=== PATIENT | female | born 1985 | race Caucasian/White ===

== ENCOUNTER 2017-03-02 16:41 | Emergency (ER) | payer OTHER ==
[2017-03-02 17:09] VITALS: BMI 20.5
[2017-03-02 17:12] VITALS: BP 108/76; PULSE 92; RESP 16; TEMP 98.9; O2SAT 99
--- NOTE | 2017-03-02 17:23 | ED PDOC ---
Arrival/HPI - General Chief Complaint: Cough, Cold, Congestion Time Seen by Provider: 03/02/17 17:19 Historian: Patient, Parent - History of Present Illness Narrative History of Present Illness (Text): 03/02/17 17:20 31 y/o female, no pmh, nkda, c/o coughing with runny nose x 4 days. Productive coughing with yellow green phelgm, associated with the runny nose, no fever or chills, no night sweat, no neck stiffness, no bodyache, no recent traveling, no rash, no diarrhea or abdominal pain, no headache, no other medical or psychological complaints. Past Medical History - Provider Review Nursing Documentation Reviewed: Yes - Infectious Disease Hx of Infectious Diseases: None - Renal Hx Renal Disorder: No Hx Kidney Stones: No - Hematological/Oncological Hx Blood Disorders: No - Psychiatric Hx Psychophysiologic Disorder: No Hx Substance Use: No - Anesthesia Hx Anesthesia: No Family/Social History - Physician Review Nursing Documentation Reviewed: Yes Family/Social History: Unknown Family HX Smoking Status: Never Smoked Hx Alcohol Use: No Hx Substance Use: No Allergies/Home Meds Allergies/Adverse Reactions: Allergies No Known Allergies Allergy (Verified 03/02/17 17:09) Review of Systems - Review of Systems Constitutional: absent: Fatigue, Fevers Eyes: absent: Vision Changes ENT: Rhinorrhea. absent: Hearing Changes Respiratory: Cough. absent: SOB, Sputum, Wheezing Cardiovascular: absent: Chest Pain Gastrointestinal: absent: Abdominal Pain, Nausea, Vomiting Musculoskeletal: absent: Arthralgias, Back Pain Skin: absent: Rash, Pruritis, Skin Lesions Physical Exam Vital Signs Reviewed: Yes ( ) Vital Signs Temp Pulse Resp BP Pulse Ox 03/02/17 17:09 98.9 F 92 H 16 108/76 99 Temperature: Afebrile Blood Pressure: Normal Pulse: Regular Respiratory Rate: Normal Appearance: Positive for: Well-Appearing, Non-Toxic, Comfortable Pain Distress: None Mental Status: Positive for: Alert and Oriented X 3 - Systems Exam Head: Present: Atraumatic, Normocephalic Pupils: Present: PERRL Extroacular Muscles: Present: EOMI Conjunctiva: Present: Normal Ears: Present: NORMAL TM, Normal Canal. No: Erythema Mouth: Present: Moist Mucous Membranes Pharnyx: No: ERYTHEMA, EXUDATE, TONSILS ENLARGED, Uvular Deviation, Soft Palate/ Uvular Edema Nose (External): Present: Atraumatic. No: Abrasion, Contusion, Laceration Nose (Internal): Present: Normal Inspection, No Active Bleeding, Rhinorrhea. No : Septal Deviation, Septal Hematoma, Epistaxis Neck: Present: Normal Range of Motion Respiratory/Chest: Present: Clear to Auscultation, Good Air Exchange. No: Respiratory Distress, Accessory Muscle Use, Wheezes, Decreased Breath Sounds, Rales, Retracting, Rhonchi, Tachypneic, Tender to Palpation Cardiovascular: Present: Regular Rate and Rhythm, Normal S1, S2, Other (no pedal edema). No: Murmurs Abdomen: Present: Normal Bowel Sounds. No: Tenderness, Distention, Peritoneal Signs Back: Present: Normal Inspection Upper Extremity: Present: Normal Inspection. No: Cyanosis, Edema Lower Extremity: Present: Normal Inspection. No: Edema Neurological: Present: GCS=15, CN II-XII Intact, Speech Normal Skin: Present: Warm, Dry, Normal Color. No: Rashes Psychiatric: Present: Alert, Oriented x 3, Normal Insight, Normal Concentration Medical Decision Making ED Course and Treatment: 03/02/17 17:22 -Discharge home with cefdinir, claritin d24, promethazine dm, flonase, stay hydrated, bed rest, take tylenol or motrin at home as needed, follow up with your own pmd and ENT within 2 days, return to the ER for any new or worsening signs or symptoms. - PA / RUG INSPECTOR / Resident Statement / has reviewed & agrees with the documentation as recorded. Disposition/Present on Arrival - Present on Arrival Any Indicators Present on Arrival: No History of DVT/PE: No History of Uncontrolled Diabetes: No Urinary Catheter: No History of Decub. Ulcer: No History Surgical Site Infection Following: None - Disposition Have Diagnosis and Disposition been Completed?: Yes Diagnosis: Upper respiratory infection Disposition: HOME/ ROUTINE Disposition Time: 17:23 Patient Plan: Discharge Condition: GOOD Additional Instructions: Discharge home with cefdinir, claritin d24, promethazine dm, flonase, stay hydrated, bed rest, take tylenol or motrin at home as needed, follow up with your own pmd and ENT within 2 days, return to the ER for any new or worsening signs or symptoms. Prescriptions: Loratadine/Pseudoephedrine [Claritin-D 24 Hour Tablet] 1 each PO DAILY #7 tab.er.24h Fluticasone Propionate [Flonase Allergy Relief] 1 spray NS DAILY #1 spray.susp Cefdinir [Omnicef] 300 mg PO BID #20 cap Promethazine DM [Phenergan DM Oral Syrup] 5 ml PO QID PRN #150 ml PRN Reason: Other Referrals: [facility] at [facility] [place] [Outside] - Follow up with primary Forms: WORK NOTE
== END 2017-03-02 17:42 | disposition home or self-care (01) ==
LOC: ED 16:41
DX: J06.9 Acute upper respiratory infection, unspecified (principal)

== ENCOUNTER 2017-10-02 13:14 | Emergency (ER) | payer OTHER ==
[2017-10-02 13:14] VITALS: BMI 20.5
[2017-10-02 13:43] VITALS: TEMP 98
--- NOTE | 2017-10-02 14:21 | ED PDOC ---
Arrival/HPI - General Chief Complaint: Breast Problem Time Seen by Provider: 10/02/17 13:25 Historian: Patient - History of Present Illness Narrative History of Present Illness (Text): 10/02/17 14:22 32yo female with no PMHx who present with complaint of tingling sensation to her left breast. the who was by the bedside states it was pain yesterday , but it resolved. She did not take any medication. Denies lump, skin changes, nipple discharge, fever, chills, night sweat, weight loss. Denies Familial history of breast CA. Past Medical History - Provider Review Nursing Documentation Reviewed: Yes - Infectious Disease Hx of Infectious Diseases: None - Renal Hx Renal Disorder: No Hx Kidney Stones: No - Hematological/Oncological Hx Blood Disorders: No - Psychiatric Hx Psychophysiologic Disorder: No Hx Substance Use: No - Anesthesia Hx Anesthesia: No Family/Social History - Physician Review Nursing Documentation Reviewed: Yes Family/Social History: Unknown Family HX Smoking Status: Never Smoked Hx Alcohol Use: No Hx Substance Use: No Allergies/Home Meds Allergies/Adverse Reactions: Allergies No Known Allergies Allergy (Verified 10/02/17 13:44) Home Medications: Home Meds Medication Instructions Recorded Confirmed No Known Home Med 10/02/17 10/02/17 Review of Systems - Physician Review All systems were reviewed & negative as marked: Yes - Review of Systems Constitutional: Normal Eyes: Normal ENT: Normal Respiratory: Normal Cardiovascular: Other (Breast pain) Gastrointestinal: Normal Genitourinary Female: Normal Musculoskeletal: Normal Skin: Normal Neurological: Normal Endocrine: Normal Hemo/Lymphatic: Normal Psychiatric: Normal Physical Exam Vital Signs Reviewed: Yes Vital Signs Temp Pulse Resp BP Pulse Ox 10/02/17 13:39 98.0 F 82 18 136/101 H 100 Temperature: Afebrile Blood Pressure: Normal Pulse: Regular Respiratory Rate: Normal Appearance: Positive for: Well-Appearing, Non-Toxic, Comfortable Pain Distress: None Mental Status: Positive for: Alert and Oriented X 3 - Systems Exam Head: Present: Atraumatic, Normocephalic Pupils: Present: PERRL Extroacular Muscles: Present: EOMI Conjunctiva: Present: Normal Mouth: Present: Moist Mucous Membranes Neck: Present: Normal Range of Motion Respiratory/Chest: Present: Clear to Auscultation, Good Air Exchange. No: Respiratory Distress, Accessory Muscle Use Cardiovascular: Present: Regular Rate and Rhythm, Normal S1, S2. No: Murmurs Abdomen: Present: Normal Bowel Sounds. No: Tenderness, Distention, Peritoneal Signs Breast/Axillary: Present: Symmetrical. No: Axillary Lymphad, Discoloration, Erythema, Masses, Nipple Discharge, Swelling, Tender to Palpation Back: Present: Normal Inspection Upper Extremity: Present: Normal Inspection. No: Cyanosis, Edema Lower Extremity: Present: Normal Inspection. No: Edema Neurological: Present: GCS=15, CN II-XII Intact, Speech Normal Skin: Present: Warm, Dry, Normal Color. No: Rashes Psychiatric: Present: Alert, Oriented x 3, Normal Insight, Normal Concentration Medical Decision Making ED Course and Treatment: 10/02/17 14:26 PT in ED for stated history. PE is benign. Pt will be referred to the PRIMARY EDUCATION PROFESSOR/ clinic for outpt evaluation Disposition/Present on Arrival - Present on Arrival Any Indicators Present on Arrival: No History of DVT/PE: No History of Uncontrolled Diabetes: No Urinary Catheter: No History of Decub. Ulcer: No History Surgical Site Infection Following: None - Disposition Have Diagnosis and Disposition been Completed?: Yes Diagnosis: Mastodynia Disposition: HOME/ ROUTINE Disposition Time: 14:30 Patient Plan: Discharge Condition: STABLE Discharge Instructions (ExitCare): Chest Pain (ED) Additional Instructions: Follow up with a PRIMARY EDUCATION PROFESSOR/Clinic Return to ED for any new or worsening symptoms [facility]errals: [facility] [Outside] - Follow up with primary [facility] [Outside] - Follow up with primary [facility] at [facility] [place] [Outside] - Follow up with primary Forms: [employer] (Armenian)
[2017-10-02 14:49] VITALS: BP 142/89; PULSE 80; RESP 17; O2SAT 99
== END 2017-10-02 14:50 | disposition home or self-care (01) ==
LOC: ED 13:14
DX: N64.4 Mastodynia (principal)

== ENCOUNTER 2017-12-14 13:24 | Emergency (ER) | payer OTHER ==
[2017-12-14 13:30] VITALS: BMI 26.2
--- NOTE | 2017-12-14 14:40 | ED PDOC ---
Arrival/HPI - General Chief Complaint: Weakness/Neurological Deficit Time Seen by Provider: 12/14/17 14:37 Historian: Patient, Spouse - History of Present Illness Narrative History of Present Illness (Text): 12/14/17 15:37 pt p/w + 2-3 days onset of persistent left arm/leg heaviness, + diffuse headache , + left chest pain; pt states she has been under stress from school; pt states no fever/chills/sweats, no sob/palpitations, no abd pain, no n/v, no numbness/ tingling, no vision changes, no neck pain, no rashes, no slurr speech, no fall/ trauma/sick contact, no travel; pt denied LOC, no lightheadedness pt described 1 similar episode 4-5 years ago, did not seek medical attention at that time pt denied severe depression, pt states NO SI/HI, no hallucinations - visual/ tactile/auditory pt is here for further eval pt's without other complaints. 12/14/17 19:48 12/14/17 19:50 FAMILY HX: unremarkable (no acute NE with family < 50yo) Time/Duration: < week (2 days) Symptom Onset: Sudden Symptom Course: Unchanged Context: Home Past Medical History - Provider Review Nursing Documentation Reviewed: Yes - Travel History Have you recently traveled outside [place] w/in the past 3 mons?: No - Past History Past History: No Previous - Infectious Disease Hx of Infectious Diseases: None - Renal Hx Renal Disorder: No Hx Kidney Stones: No - Hematological/Oncological Hx Blood Disorders: No - Psychiatric Hx Psychophysiologic Disorder: No Hx Substance Use: No - Anesthesia Hx Anesthesia: No Hx Anesthesia Reactions: No Hx Malignant Hyperthermia: No Family/Social History - Physician Review Nursing Documentation Reviewed: Yes Family/Social History: No Known Family HX Smoking Status: Never Smoked Hx Alcohol Use: No Hx Substance Use: No Hx Substance Use Treatment: No Allergies/Home Meds Allergies/Adverse Reactions: Allergies No Known Allergies Allergy (Verified 10/02/17 13:44) Home Medications: Home Meds Medication Instructions Recorded Confirmed No Known Home Med 10/02/17 12/14/17 Review of Systems - Review of Systems Constitutional: Normal Eyes: Normal ENT: Normal Respiratory: Normal Cardiovascular: Chest Pain Gastrointestinal: Normal Genitourinary Female: Normal Musculoskeletal: Normal Skin: Normal Neurological: Headache, Other (left arm/leg weakness) Endocrine: Normal Hemo/Lymphatic: Normal Psychiatric: Normal Physical Exam Vital Signs Reviewed: Yes Vital Signs Temp Pulse Resp BP Pulse Ox 12/14/17 15:35 98.5 F 79 20 132/78 99 12/14/17 14:02 140/80 12/14/17 13:24 98.3 F 79 18 116/77 98 Temperature: Afebrile Blood Pressure: Hypertensive (mild) Pulse: Regular Respiratory Rate: Normal Appearance: Positive for: Well-Appearing, Other (flat affect; cooperative, follows command with ease; alert/awake, GCS = 15, oriented x 3, NAD) Pain Distress: None Mental Status: Positive for: Alert and Oriented X 3 - Systems Exam Head: Present: Atraumatic, Normocephalic Pupils: Present: PERRL, Other (visual field intact b/l, no nystagmus, no photophobia, sclera anicteric) Extroacular Muscles: Present: EOMI Conjunctiva: Present: Normal Ears: Present: Normal Mouth: Present: Moist Mucous Membranes, Normal Teeth Pharnyx: Present: Normal Nose (External): Present: Atraumatic Nose (Internal): Present: Normal Inspection Neck: Present: Normal Range of Motion, Trachea Midline, Other (intact ROM, no midline tenderness, no nuchal rigidity, no meningeal signs, no step off). No: MIDLINE TENDERNESS Respiratory/Chest: Present: Clear to Auscultation, Good Air Exchange Cardiovascular: Present: Regular Rate and Rhythm, Normal S1, S2 Abdomen: Present: Normal Bowel Sounds, Other (well nourished female, no focal tenderness, no tucker's sign, no mcburney's point tenderness) Back: Present: Normal Inspection. No: CVA Tenderness Upper Extremity: Present: Normal Inspection, Normal ROM, NORMAL PULSES, Neurovascularly Intact, Capillary Refill < 2s Lower Extremity: Present: Normal Inspection, NORMAL PULSES, Normal ROM, Neurovascularly Intact, Capillary Refill < 2 s. No: Edema Neurological: Present: GCS=15, CN II-XII Intact, Speech Normal, Other (no facial asymmetries, no slurr speech, NIH stroke scale ~ 0; no ataxia is noted) Skin: Present: Warm, Normal Color, Other (cap refill < 1sec, no ulcerations, no petechiae) Psychiatric: Present: Alert, Oriented x 3 Medical Decision Making ED Course and Treatment: 12/14/17 14:38 Impression: headache, left chest pain, left arm/leg weakness, + stress i have consider all the differential diagnosis regarding pt's chief medical complaints/clinical findings, including but are not limited to: possible acute stress reaction, unlikely acs, unlikely tia/cva A/P: acute stress reaction, left chest pain, headache - ct - ekg - observe - supportive care 12/14/17 19:53 pt is doing well pt states chest pain/symptoms of weakness has subsided pt is made aware of her medical results pt will f/u as directed pt will be discharged home Re-evaluation Time: 16:52 Reassessment Condition: Improved - RAD Interpretation Radiology Orders: 12/14/17 14:38 HEAD W/O CONTRAST [CT] Stat PROCEDURE: CT HEAD WITHOUT CONTRAST. HISTORY: left body weakness COMPARISON: None available. TECHNIQUE: Axial computed tomography images were obtained through the head/brain without intravenous contrast. Radiation dose: Total exam DLP = 918.67 mGy-cm. This CT exam was performed using one or more of the following dose reduction techniques: Automated exposure control, adjustment of the mA and/or kV according to patient size, and/or use of iterative reconstruction technique. FINDINGS: HEMORRHAGE: No intracranial hemorrhage. BRAIN: Loza-white matter differentiation is preserved. There is no mass, mass effect or abnormal extra-axial fluid collection. There is no territorial infarction. VENTRICLES: The ventricles are normal in size, shape and configuration. CALVARIUM: There is no calvarial fracture or extracranial soft tissue swelling. PARANASAL SINUSES: Predominantly clear. MASTOID AIR CELLS: Predominantly clear. OTHER FINDINGS: None. IMPRESSION: No acute intracranial abnormality. If there is a persistent focal neurologic deficit and an ongoing clinical concern for acute infarction, an MRI of the brain without intravenous contrast would be a more sensitive modality for evaluation of hyperacute/acute ischemic infarction and demyelinating disease. Board Attendant: Radiologist - EKG Interpretation EKG Interpretation (Text): 12/14/17 15:35 NSR at 65 bpm, normal axis, no ectopy, no st-t changes, NORMAL EKG; no old ekg to compare with 12/14/17 15:36 Interpreted by ED Physician: Yes Type: 12 lead EKG Comparison: No previous EKG avail. - Medication Orders Current Medication Orders: Discontinued Medications Lorazepam (Ativan) 1 mg PO ONCE ONE PRN Reason: Protocol Stop: 12/14/17 14:38 Last Admin: 12/14/17 15:13 Dose: 1 mg Disposition/Present on Arrival - Present on Arrival Any Indicators Present on Arrival: No History of DVT/PE: No History of Uncontrolled Diabetes: No Urinary Catheter: No History of Decub. Ulcer: No History Surgical Site Infection Following: None - Disposition Have Diagnosis and Disposition been Completed?: Yes Diagnosis: Atypical chest pain, Weakness, Stress Disposition: HOME/ ROUTINE Disposition Time: 16:53 Patient Plan: Discharge Condition: STABLE Discharge Instructions (ExitCare): Chest Pain (ED), Stress (ED), Weakness (ED) Print Language: MONTSERRATIAN Additional Instructions: Make sure to see your doctor in 1-2 days DRINK PLENTY OF FLUIDS take your medications as prescribed RETURN TO ED IF worse pain, cant breath, persistent vomiting, high fever >101- 102 for hours, altered behavior, unable to urinate, heavy/persistent bleeding, passing out, chest pain, or other medical emergencies Referrals: PCP,NO [Primary Care Provider] - Follow up with primary [facility] at [facility] [place] [Outside] - Follow up with primary Forms: [employer] (Vietnamese)
[2017-12-14 15:36] VITALS: O2SAT 99
--- NOTE | 2017-12-14 16:34 | CT ---
PROCEDURE: CT HEAD WITHOUT CONTRAST. HISTORY: left body weakness COMPARISON: None available. TECHNIQUE: Axial computed tomography images were obtained through the head/brain without intravenous contrast. Radiation dose: Total exam DLP = 918.67 mGy-cm. This CT exam was performed using one or more of the following dose reduction techniques: Automated exposure control, adjustment of the mA and/or kV according to patient size, and/or use of iterative reconstruction technique. FINDINGS: HEMORRHAGE: No intracranial hemorrhage. BRAIN: Loza-white matter differentiation is preserved. There is no mass, mass effect or abnormal extra-axial fluid collection. There is no territorial infarction. VENTRICLES: The ventricles are normal in size, shape and configuration. CALVARIUM: There is no calvarial fracture or extracranial soft tissue swelling. PARANASAL SINUSES: Predominantly clear. MASTOID AIR CELLS: Predominantly clear. OTHER FINDINGS: None. IMPRESSION: No acute intracranial abnormality. If there is a persistent focal neurologic deficit and an ongoing clinical concern for acute infarction, an MRI of the brain without intravenous contrast would be a more sensitive modality for evaluation of hyperacute/acute ischemic infarction and demyelinating disease.
[2017-12-14 16:56] VITALS: BP 132/78; PULSE 79; RESP 20; TEMP 98.5
--- NOTE | 2017-12-15 19:34 | CARD ---
APPROVED REPORT EKG Measurement Heart [id number] <Conclusion> Normal sinus rhythm Normal ECG
== END 2017-12-14 17:12 | disposition home or self-care (01) ==
LOC: ED 13:24
DX: R07.89 Other chest pain (principal); R53.1 Weakness; F43.9 Reaction to severe stress, unspecified

== ENCOUNTER 2018-08-27 12:39 | Emergency (ER) | payer OTHER ==
[2018-08-27 12:40] VITALS: BMI 26.2
[2018-08-27 12:50] VITALS: RESP 18; O2SAT 97
[2018-08-27 13:29] VITALS: TEMP 99
--- NOTE | 2018-08-27 13:59 | ED PDOC ---
Arrival/HPI - General Historian: Patient - History of Present Illness Narrative History of Present Illness (Text): 08/27/18 13:53 33yo female with no pmhx who present with 2days history of clear productive cough and sore throat. Did not take any medication. Denies fever, chills, chest pain, SOB, drooling, hoarseness, dysphagia, abdominal pain, nausea, any other complaint. <Simi Sebastian A - Last Filed: 08/27/18 19:46> <Shabbir Wilcox - Last Filed: 09/01/18 18:40> - General Chief Complaint: Cough, Cold, Congestion Time Seen by Provider: 08/27/18 12:49 Past Medical History - Provider Review Nursing Documentation Reviewed: Yes - Past History Past History: No Previous - Infectious Disease Hx of Infectious Diseases: None - Reproductive Menopause: No - Renal Hx Renal Disorder: No Hx Kidney Stones: No - Hematological/Oncological Hx Blood Disorders: No - Psychiatric Hx Psychophysiologic Disorder: No Hx Substance Use: No - Anesthesia Hx Anesthesia: No Hx Anesthesia Reactions: No Hx Malignant Hyperthermia: No <Simi Sebastian A - Last Filed: 08/27/18 19:46> Family/Social History - Physician Review Nursing Documentation Reviewed: Yes Family/Social History: Unknown Family HX Smoking Status: Never Smoked Hx Alcohol Use: No Hx Substance Use: No Hx Substance Use Treatment: No <Simi Sebastian A - Last Filed: 08/27/18 19:46> Allergies/Home Meds <Simi Sebastian A - Last Filed: 08/27/18 19:46> <Shabbir Wilcox - Last Filed: 09/01/18 18:40> Allergies/Adverse Reactions: Allergies No Known Allergies Allergy (Verified 10/02/17 13:44) Review of Systems - Physician Review All systems were reviewed & negative as marked: Yes - Review of Systems Constitutional: Normal Eyes: Normal ENT: Sore Throat Respiratory: Cough Cardiovascular: Normal Gastrointestinal: Normal Genitourinary Female: Normal Musculoskeletal: Normal Skin: Normal Neurological: Normal Endocrine: Normal Hemo/Lymphatic: Normal Psychiatric: Normal <Simi Sebastian A - Last Filed: 08/27/18 19:46> Physical Exam Vital Signs Reviewed: Yes Vital Signs Temp Pulse Resp BP Pulse Ox 08/27/18 13:29 99.0 F 88 18 121/71 97 08/27/18 12:45 99 F 88 18 125/76 97 Temperature: Afebrile Blood Pressure: Normal Pulse: Regular Respiratory Rate: Normal Appearance: Positive for: Well-Appearing, Non-Toxic, Comfortable Pain Distress: None Mental Status: Positive for: Alert and Oriented X 3 - Systems Exam Head: Present: Atraumatic, Normocephalic Pupils: Present: PERRL Extroacular Muscles: Present: EOMI Conjunctiva: Present: Normal Mouth: Present: Moist Mucous Membranes Pharnyx: Present: ERYTHEMA. No: EXUDATE, TONSILS ENLARGED, Peritonsilar Swel ling, Uvular Deviation, Muffled/Hoarse Voice, Strider Neck: Present: Normal Range of Motion Respiratory/Chest: Present: Clear to Auscultation, Good Air Exchange. No: Respiratory Distress, Accessory Muscle Use, Wheezes, Decreased Breath Sounds, Rales, Retracting, Rhonchi Cardiovascular: Present: Regular Rate and Rhythm, Normal S1, S2. No: Murmurs Abdomen: No: Tenderness, Distention, Peritoneal Signs Back: Present: Normal Inspection Upper Extremity: Present: Normal Inspection. No: Cyanosis, Edema Lower Extremity: Present: Normal Inspection. No: Edema Neurological: Present: GCS=15, CN II-XII Intact, Speech Normal Skin: Present: Warm, Dry, Normal Color. No: Rashes Psychiatric: Present: Alert, Oriented x 3, Normal Insight, Normal Concentration <Diru,Happiness A - Last Filed: 08/27/18 19:46> Vital Signs Temp Pulse Resp BP Pulse Ox 08/27/18 15:00 78 18 118/69 97 08/27/18 13:29 99.0 F 88 18 121/71 97 08/27/18 12:45 99 F 88 18 125/76 97 <Shabbir Wilcox - Last Filed: 09/01/18 18:40> Medical Decision Making ED Course and Treatment: 08/27/18 19:46 PT presented for stated history. She was not hypoxic. In no distress. Afebrile. CXR NAD Repaid strep negative. Pt's centor score is zero Strep culture pending Result was DW the pt. They was no indication for abx and pt was treated symptomatically. referred to her PMD/clinic. - RAD Interpretation Radiology Orders: 08/27/18 12:50 CHEST TWO VIEWS (PA/LAT) [RAD] Stat <Simi Sebastian - Last Filed: 08/27/18 19:46> - Lab Interpretations Microbiology Results: Microbiology Results 08/27/18 13:20 Throat Group A Strep Throat Culture - Final NO BETA STREP GROUP A ISOLATED. Lab Results: Lab Results 08/27/18 13:20: Grp A Beta Strep Ag Negative - RAD Interpretation Radiology Orders: 08/27/18 12:50 CHEST TWO VIEWS (PA/LAT) [RAD] Stat - Medication Orders Current Medication Orders: Discontinued Medications Guaifenesin (Robitussin) 200 mg PO ONCE STA Stop: 08/27/18 15:20 Last Admin: 08/27/18 15:37 Dose: 200 mg <Shabbir Wilcox - Last Filed: 09/01/18 18:40> - PA / [employer] / Resident Statement / has reviewed & agrees with the documentation as recorded. <Shabbir Wilcox - Last Filed: 09/01/18 18:40> Disposition/Present on Arrival - Present on Arrival Any Indicators Present on Arrival: No History of DVT/PE: No History of Uncontrolled Diabetes: No Urinary Catheter: No History of Decub. Ulcer: No History Surgical Site Infection Following: None - Disposition Have Diagnosis and Disposition been Completed?: Yes Disposition Time: 15:35 Patient Plan: Discharge <JazSimi Daphne - Last Filed: 08/27/18 19:46> <Shabbir Wilcox - Last Filed: 09/01/18 18:40> - Disposition Diagnosis: Cough, Sore throat Disposition: HOME/ ROUTINE Condition: STABLE Discharge Instructions (ExitCare): Sore Throat in Adults, Cough, Adult (DC) Additional Instructions: Follow up with your Doctor/Clinic Return to ED for any new or worsening symptoms Prescriptions: RX: Albuterol HFA [Ventolin HFA 90 mcg/actuation (8 g)] 1 puff IH Q6 #1 inhaler Benzocaine/Menthol [Sore Throat Lozenge] 1 each MM BID #100 lozenge guaiFENesin [Robitussin] 100 mg PO Q6 #120 dose Referrals: Shima Hewitt MD [Medical Doctor] - Follow up with primary Forms: [employer] (Chilean)
[2018-08-27 15:05] VITALS: BP 118/69; PULSE 78
[2018-08-27] MEDS ORDERED: guaiFENesin 200 mg/10 ml Syrup UD PO STA (15:19)
--- NOTE | 2018-08-27 15:19 | RAD ---
Date of service: 08/27/2018 HISTORY: cough COMPARISON: No prior. TECHNIQUE: Chest PA and lateral FINDINGS: LUNGS: No active pulmonary disease. PLEURA: No significant pleural effusion identified. No pneumothorax apparent. CARDIOVASCULAR: Normal. OSSEOUS STRUCTURES: No significant abnormalities. VISUALIZED UPPER ABDOMEN: Normal. OTHER FINDINGS: None. IMPRESSION: No active disease.
== END 2018-08-27 15:44 | disposition home or self-care (01) ==
LOC: ED 12:39
DX: R05 Cough (principal); R07.0 Pain in throat

== ENCOUNTER 2018-12-24 14:14 | Emergency (ER) | payer OTHER ==
[2018-12-24 14:16] VITALS: BMI 26.2
[2018-12-24 15:01] VITALS: BP 130/80; TEMP 98.4
[2018-12-24] MEDS ORDERED: Lidocaine 1% Inj (20ml) IJ STA (15:09)
--- NOTE | 2018-12-24 15:27 | ED PDOC ---
Arrival/HPI - General Chief Complaint: Upper Extremity Problem/Injury Time Seen by Provider: 12/24/18 15:04 Historian: Patient - History of Present Illness Narrative History of Present Illness (Text): 12/24/18 15:00 33 year old female, with no significant past medical history, who presents to the emergency department for evaluation of right 4th digit swelling noted for 2 days. Patient reportedly drained the area yesterday. Patient denies any fevers or any other complaints. PMD: none. Time/Duration: > week (Pt notes onset as past 2 days ) Symptom Onset: Sudden Symptom Course: Unchanged Activities at Onset: Light Past Medical History - Provider Review Nursing Documentation Reviewed: Yes - Past History Past History: No Previous - Infectious Disease Hx of Infectious Diseases: None - Reproductive Menopause: No Currently : Unknown - Renal Hx Renal Disorder: No Hx Kidney Stones: No - Hematological/Oncological Hx Blood Disorders: No - Psychiatric Hx Psychophysiologic Disorder: No Hx Substance Use: No - Anesthesia Hx Anesthesia: No Hx Anesthesia Reactions: No Hx Malignant Hyperthermia: No Family/Social History - Physician Review Nursing Documentation Reviewed: Yes Family/Social History: No Known Family HX Smoking Status: Never Smoked Hx Alcohol Use: No Hx Substance Use: No Hx Substance Use Treatment: No Allergies/Home Meds Allergies/Adverse Reactions: Allergies No Known Allergies Allergy (Verified 10/02/17 13:44) Review of Systems - Physician Review All systems were reviewed & negative as marked: Yes - Review of Systems Constitutional: Normal. absent: Fevers Musculoskeletal: Other (Patient notes swelling of the 4th digit ). absent: Normal Physical Exam Vital Signs Reviewed: Yes Vital Signs Temp Pulse Resp BP Pulse Ox 12/24/18 14:57 98.4 F 84 20 130/80 100 Temperature: Afebrile Blood Pressure: Normal Pulse: Regular Respiratory Rate: Normal Appearance: Positive for: Well-Appearing, Non-Toxic Pain Distress: None Mental Status: Positive for: Alert and Oriented X 3 - Systems Exam Head: Present: Atraumatic, Normocephalic Pupils: Present: PERRL Extroacular Muscles: Present: EOMI Conjunctiva: Present: Normal Mouth: Present: Moist Mucous Membranes Neck: Present: Normal Range of Motion Respiratory/Chest: Present: Clear to Auscultation, Good Air Exchange. No: Respiratory Distress, Accessory Muscle Use Cardiovascular: Present: Regular Rate and Rhythm, Normal S1, S2. No: Murmurs Abdomen: No: Tenderness, Distention, Peritoneal Signs Back: Present: Normal Inspection Upper Extremity: Present: Other (perinicium on right 4th digit ). No: Normal Inspection Lower Extremity: Present: Normal Inspection. No: Edema Neurological: Present: GCS=15, CN II-XII Intact, Speech Normal Skin: Present: Warm, Dry, Normal Color. No: Rashes Psychiatric: Present: Alert, Oriented x 3, Normal Insight, Normal Concentration Medical Decision Making ED Course and Treatment: 12/24/18 15:00 Impression: 33 year old female who presents for evaluation of right 4th digit swelling noted for 2 days. Differential Diagnosis included but are not limited to: Plan: -- Lidocaine -- Reassess and disposition Prior Visits: Notes and results from previous visits were reviewed. Patient was last seen in the emergency department on 08/27/18 for 2 days history of clear productive cough and sore throat. Patient was discharged home in stable condition and prescribed: Ventolin, Sore throat Lozenge, and Robitussin. Progress Notes: 12/24/18 16:31 parynhycia drained. advise outpt fu and return precautions. - Medication Orders Current Medication Orders: Discontinued Medications Lidocaine HCl (Lidocaine 1% (20ml)) 10 ml IJ STAT STA Stop: 12/24/18 15:10 - Procedure PROCEDURE NOTE (Text): Procedure: Incision & Drainage Performed by the emergency provider Indication: Abscess Location: Preparation: The area was prepped and draped in the usual sterile fashion and was cleansed with . Local infiltration of Lidocaine 1% with Epi was used for anesthesia. Procedure: The most fluctuant portion of the abscess was incised with a #11 scalpel. Approximately mL of was obtained. The abscess was packed. A dressing was applied by the RN. Post-Procedure: On exam the abscess is notably less fluctuant. The patient tolerated the procedure well, and there were no complications. Cultured: {YES / NO} Procedures - Incision and Drainage Blade Size: 11 I & D Procedure: betadine prep, sterile drapes applied Progress: paronychai drained. s/p lidocaine digital block. 11 blade used to incise flutuance with purlent dc - Scribe Statement The provider has reviewed the documentation as recorded by the Scribe Bee Haile All medical record entries made by the Scribe were at my direction and personally dictated by me. I have reviewed the chart and agree that the record accurately reflects my personal performance of the history, physical exam, medical decision making, and the department course for this patient. I have also personally directed, reviewed, and agree with the discharge instructions and disposition. Disposition/Present on Arrival - Present on Arrival Any Indicators Present on Arrival: No History of DVT/PE: No History of Uncontrolled Diabetes: No Urinary Catheter: No History of Decub. Ulcer: No History Surgical Site Infection Following: None - Disposition Have Diagnosis and Disposition been Completed?: Yes Diagnosis: Paronychia Disposition: HOME/ ROUTINE Disposition Time: 16:00 Condition: STABLE Discharge Instructions (ExitCare): Paronychia (DC) Additional Instructions: follow up with your doctor/specialist. return to any er with worsening. Prescriptions: Sulfamethoxazole/Trimethoprim [Bactrim DS 800 mg-160 mg] 1 tab PO BID #14 tab Referrals: Ketan Serrano MD [Medical Doctor] - Follow up with primary Forms: [employer] (Yakut)
[2018-12-24] MEDS ORDERED: Tmp-Smz 800 mg-160 mg DS Tab PO STA (15:34)
[2018-12-24 16:29] VITALS: PULSE 80; RESP 18; O2SAT 98
== END 2018-12-24 16:28 | disposition home or self-care (01) ==
LOC: ED 14:14
DX: L03.011 Cellulitis of right finger (principal)